=== PATIENT | female | born 1965 | race American Indian/Alaskan Native ===

== ENCOUNTER 2017-08-07 12:38 | Outpatient (CLI) | payer MEDICARE ==
--- NOTE | 2017-08-08 15:28 | Magnetic Resonance Report ---
BILATERAL BREAST MRI WITHOUT AND WITH CONTRAST: 08/07/17 12:38:00 CLINICAL: Newly diagnosed left breast cancer contiguous to fibroadenoma which was biopsied in 2007. Status post left ultrasound-guided needle breast biopsy on 07/07/17 with pathologic diagnosis of invasive carcinoma , grade 2-3. COMPARISON:06/23/17 and 07/07/17 mammograms from [facility]. TECHNIQUE: Axial 1.0-mm T1 without, axial high resolution 2.0-mm T2 and axial 1.0-mm dynamic Vibrant high-resolution postcontrast T1 fat saturation sequences on a 1.5 Suzanne magnet. The examination was performed with an 8 channel dedicated [place] breast coil. Post processing with CAD and subtraction was performed on an Macoscope workstation. 20 cc of Multihance was injected without incident via a right antecubital vein 22-gauge INT for the contrast portion of the exam. Consent was obtained prior to the administration of the contrast. FINDINGS: Right: Minimal background parenchymal enhancement. No mass or suspicious enhancement. No suspicious lymph nodes. Left: Minimal background parenchymal enhancement. An oval circumscribed encapsulated enhancing mass with a biopsy clip at 12 o'clock 9.5 cm from the nipple measures 4.5 x 2.7 x 3.8 cm. It demonstrates heterogeneous enhancement with mixed kinetics, 145% enhancement and 12% type III washout. A second oval smooth contiguous mass is located slightly inferior and posterior to the larger mass and measures 2.7 x 1.9 x 1.8 cm. The lung cancer mixed signal on T2 and the adjacent fibroadenoma is mostly hypointense on T2. There is irregular enhancement at the superior margin of the fibroadenoma with the cancer extending slightly superior to or invading the fibroadenoma. No other mass or suspicious enhancement. A single suspicious left level I axillary lymph node demonstrates cortical thickening of 7 mm. the lymph node measures 2 cm maximum dimension. No other suspicious lymph nodes. IMPRESSION: Known left breast cancer measuring 4.5 cm maximum. The cancer is contiguous to a biopsy proven fibroadenoma and may invade the fibroadenoma. One suspicious left axillary lymph node. Negative right breast. RIGHT BI-RADS 1 -- Negative LEFT BI-RADS 6 -- Known Cancer
== END 2017-08-07 12:39 | disposition home or self-care (01) ==
LOC: SPVIMAG 12:38
PROVIDERS: ATTEND Surgery
DX: C50.912 Malignant neoplasm of unspecified site of left female breast (principal); Z80.3 Family history of malignant neoplasm of breast
CPT/HCPCS: A9577; C8908; 77059

== ENCOUNTER 2017-08-13 15:36 | Outpatient (CLI) | payer MEDICARE | END 2017-08-13 15:37 | disposition home or self-care (01) | LOC: LABHHL 15:36 | PROVIDERS: ATTEND Specialist | DX: R92.8 Other abnormal and inconclusive findings on diagnostic imaging of breast (principal) | CPT/HCPCS: 88305 ==

== ENCOUNTER 2017-08-27 06:03 | Day surgery (SDC) | payer MEDICARE ==
[2017-08-27] MEDS ORDERED: NACL BACTERIOSTATIC INFILTRATI ONE (06:37)
[2017-08-27] MEDS ORDERED: NACL 0.9% 100 ML ONE (06:40)
[2017-08-27] MEDS ORDERED: XYLOCAINE 1% 20 mL ONE (06:40)
[2017-08-27] MEDS ORDERED: HEPARIN 10,000 UNITS/10 ML ONE (06:40)
[2017-08-27] MEDS ORDERED: MARCAINE 0.25% INFILTRATI ONE ×2 (06:40→08:30)
[2017-08-27] MEDS ORDERED: ZOFRAN IV PRN (07:10)
[2017-08-27] MEDS ORDERED: NACL 0.9% 1000 ML 1,000 ML ONE ×2 (07:15→09:13)
--- NOTE | 2017-08-27 07:17 | Anesthesia Consultation ---
Anesthesia Consult and Med Hx Date of service: 08/27/17 - Airway Anesthetic Teeth Evaluation: Good ROM Head & Neck: Adequate Mental/Hyoid Distance: Adequate Mallampati Class: Class III Intubation Access Assessment: Probably Good - Pulmonary Exam CTA: Yes - Cardiac Exam Cardiac Exam: RRR - Pre-Operative Health Status ASA Pre-Surgery Classification: ASA3 Proposed Anesthetic Plan: MAC - Pulmonary Hx Smoking: No Hx Asthma: No COPD: No Hx Sleep Apnea: No - Cardiovascular System Hx Hypertension: Yes (2016) Hx Heart Attack/AMI: No Hx Pacemaker: No Hx Internal Defibrillator: No Hx Valvular Heart Disease: No Hx Heart Murmur: No Hx Peripheral Vascular Disease: No - Central Nervous System Hx Neuromuscular Disorder: No Hx Seizures: No CVA: No Hx Psychiatric Problems: No - Gastrointestinal Hx Gastroesophageal Reflux Disease: No - Endocrine Hx Renal Disease: No - Hematic Hx Anemia: No - Other Systems Hx Alcohol Use: Yes (WEEKENDS) Hx Substance Use: No Hx Cancer: Yes
--- NOTE | 2017-08-27 07:17 | Anesthesia Day of Surgery ---
Anesthesia Day of Surgery - Day of Surgery Patient Examined: Yes Patient H&P Reviewed: Yes Patient is NPO: Yes
--- NOTE | 2017-08-27 07:18 | Progress Note ---
Subjective Date of service: 08/27/17 Principal diagnosis: breast Cancer Interval history: Pt seen and examined. NPO. No heart disease. Plan is MAC. Objective - Constitutional Vitals: Vital Signs - 12hr 08/27/17 08/27/17 07:02 07:06 Temperature 98.2 F 98.2 F Pulse Rate 84 84 Respiratory 18 18 Rate Blood Pressure 175/97 175/97
[2017-08-27] MEDS ORDERED: DIPRIVAN 10 MG/ML IV ONE ×2 (07:32→08:12)
[2017-08-27] MEDS ORDERED: VERSED ONE (07:33)
[2017-08-27] MEDS ORDERED: SUBLIMAZE ONE (07:36)
[2017-08-27] MEDS ORDERED: XYLOCAINE MPF 0.5% INFILTRATI ONE (07:37)
[2017-08-27] MEDS ORDERED: ZOFRAN IV NR (08:00)
[2017-08-27] MEDS ORDERED: DILAUDID IV PRN (08:00)
[2017-08-27] MEDS ORDERED: PEPCID IV NR (08:00)
[2017-08-27] MEDS ORDERED: ANCEF/STERILE WATER 2 GM/20 ML IV NR (08:00)
[2017-08-27] MEDS ORDERED: LACTATED RINGERS 1,000 ML IV SCH (08:00)
[2017-08-27] MEDS ORDERED: HEPARIN 10,000 UNITS/10 ML IV ONE (08:29)
[2017-08-27] MEDS ORDERED: NACL 0.9% IR ONE (08:29)
[2017-08-27] MEDS ORDERED: XYLOCAINE 1% 20 mL INFILTRATI ONE (08:30)
[2017-08-27] MEDS ORDERED: NACL 0.9% IV ONE (08:30)
--- NOTE | 2017-08-27 09:26 | Short Stay Summary ---
Short Stay Documentation Date of service: 08/27/17 Narrative H&P: 51 yo F with left breast cancer. The patient is a candidate for chemotherapy and was referred for port placement. She has no complaints. - History Principal diagnosis: left breast cancer H&P: obtained from office - Allergies and Medications Current Medications: Allergies morphine Adverse Reaction (Intermediate, Verified 08/25/17 10:51) Itching Home Medications Medication Instructions Recorded Confirmed Last Taken Type Insulin Glargine,Hum.rec.anlog 40 units SQ QHS 08/25/17 08/27/17 08/26/17 History [Lantus Solostar] Liraglutide [Victoza 2-Moe] 1.8 mg SQ QDAY 08/25/17 08/27/17 08/26/17 History Metoprolol [Lopressor] 100 mg PO QHS 08/25/17 08/27/17 08/25/17 History hydrALAZINE [Apresoline TAB] 10 mg PO BID 08/25/17 08/27/17 08/26/17 History Active Medications Cefazolin Sodium (Ancef/Sterile Water 2 Gm/20 Ml) 2 gm IV PREOP NR Stop: 08/27/17 12:00 Famotidine (Pepcid) 20 mg IV PREOP NR Stop: 08/27/17 10:00 Hydromorphone HCl (Dilaudid) 0.25 mg IV Q10MIN PRN PRN Reason: Pain, Moderate (4-6) Stop: 08/27/17 15:00 Lactated Ringer's (Lactated Ringers) 1,000 mls @ 100 mls/hr IV DIRECT ISMA Ondansetron HCl (Zofran) 4 mg IV ONCE PRN PRN Reason: Nausea And Vomiting Ondansetron HCl (Zofran) 4 mg IV PREOP NR Stop: 08/27/17 12:00 - Brief post op/procedure progress note Date of procedure: 08/27/17 Pre-op diagnosis: left breast cancer Post-op diagnosis: same Procedure: Placement of right internal jugular port a cath with ultrasound guidance Anesthesia: MAC, local Findings: good placement of port on post op CXR, no PTX Surgeon: WAI BROWER Estimated blood loss: minimal Pathology: none Condition: stable - Hospital course Hospital course: Pt was observed in PACU and discharged in stable condition when criteria was met. - Disposition Condition at discharge: Good Disposition: DC-01 TO HOME OR SELFCARE Short Stay Discharge Plan Activity: no restrictions Diet: diabetic Wound: open to air, other (May shower with soap and water tomorrow. Pat incision dry, do not scrub) Follow up with: NAVID TATE MD [Primary Care Provider] - 7 Days WAI BROWER DO [Staff Physician] - 14 Days
--- NOTE | 2017-08-27 09:48 | Fluoroscopy Report ---
AP CHEST: HISTORY: Breast cancer AP view of the chest demonstrates a normal mediastinal and cardiac contour with clear lungs and normal bony and soft tissue structures. A right Winoqy-y-Rcym has been inserted which terminates in the cavoatrial junction. No pneumothorax identified. IMPRESSION: Unremarkable AP chest. Right Odsigv-l-Bgau placement as described.
[2017-08-27] MEDS ORDERED: APRESOLINE PO PRN (11:00)
[2017-08-27 11:28] VITALS: BP 184/90
--- NOTE | 2017-08-27 13:21 | Post Anesthesia Evaluation ---
- Post Anesthesia Evaluation Patient Participated: Yes Airway Patent: Yes Stable Respiratory Function: Yes Nausea/Vomiting: No Temp > 96.8F: Yes Pain Manageable: Yes Adequeate Hydration: Yes Anesthesia Complications: No
--- NOTE | 2017-08-27 14:56 | Operative Report ---
Operative Report Operative Report: Date of operation: 08/27/17 Reoperative diagnosis: Left breast cancer Postoperative diagnosis: Same as above Procedure performed: Placement of right internal jugular Port-A-Cath with ultrasound-guided Surgeon: Arpit Weber DO Anesthesia: MAC, local Findings: On intraoperative CXR - good placement of port and no PTX EBL: <10cc Complications: none Disposition: stable to PACU HPI and indication: Patient is a 51-year-old female who has left breast cancer. The patient is seen by Dr. Pal who diagnosed her breast cancer and Dr. Nair" (oncology) and deemed a candidate for chemotherapy. All of the risks associated with the procedure were discussed with the patient including but not limited to pneumothorax, infection, bleeding, malpositioned port, injury to other structures. The patient understands and all questions were answered. Consent was signed and placed on chart. Procedure in detail: The patient was identified in the preoperative area, taken back to operating room, placed on operating table in supine position. After anesthesia was induced both arms were tucked and upper chest and neck were prepped and draped in usual sterile fashion. A timeout was performed. The was placed in Trendelenburg position. Local anesthetic was infiltrated into the skin at the intended puncture site. The right subclavian vein was visualized with ultrasound and access was attempted. Due to the small caliber of the vein and collapsing of the vein with respiration, access could not be gained after 2 sticks. I then identified the right internal jugular vein with ultrasound and it was accessed on the first stick. There was return of dark red, nonpulsatile blood. The wire was threaded under fluoroscopy without resistance and positioning confirmed. The needle was then removed. Using a 15 blade, an incision was made in the right upper chest and dissection carried down through the skin and subcutaneous tissue using Bovie electrocautery. Hemostasis was achieved along the way. A pocket for the port was then created bluntly and with electrocautery. The catheter was flushed and tunneled from the pocket to the wire. A breakaway catheter/dilator sheath then inserted over the wire under fluoroscopy, and the wire and dilator removed. The catheter was then inserted through the breakaway catheter which was then removed. The catheter sat flush under the skin. Using continuous fluoroscopy, the catheter was pulled back until the tip was visualized in the right atrium. The catheter was then cut to size and the port attached in the usual fashion. The port was then sutured into place to the pre-pectoral fascia using 2-0 Vicryl interrupted sutures. The wound was irrigated and hemostasis ensured. The port was tested with heparinized saline and there was return of blood and it flushed easily. The port was then instilled with 3000 units of heparin. The deep dermal layer was then closed with interrupted 3-0 Vicryl stitches. The skin incisions were closed with 4-0 Monocryl subcuticular stitches and skin glue. Intraoperative chest x-ray did show good positioning of the port, without evidence of pneumothorax At the end of the case, all sponge, instrument, sharp counts were correct 2. The patient was awoken from anesthesia and taken to PACU in stable condition.
== END 2017-08-27 11:35 | disposition home or self-care (01) ==
LOC: OR 06:03
PROVIDERS: ATTEND Surgery
DX: C50.412 Malignant neoplasm of upper-outer quadrant of left female breast (principal); E11.9 Type 2 diabetes mellitus without complications; I10 Essential (primary) hypertension; E78.00 Pure hypercholesterolemia, unspecified; E66.9 Obesity, unspecified; Z88.5 Allergy status to narcotic agent; Z68.41 Body mass index [BMI] 40.0-44.9, adult
CPT/HCPCS: 36561; 77001; 82962; C1788; J0690; J1644; J2250; J2405; J2704; J3010; J7030

== ENCOUNTER 2017-08-28 07:40 | Outpatient (CLI) | payer MEDICARE ==
--- NOTE | 2017-08-28 14:27 | PET Report ---
PET/CT:08/28/17 07:40:00 CLINICAL: Breast cancer staging. Recently diagnosed left breast cancer. MRI demonstrated a 4.5 cm cancer contiguous to a biopsy proven benign fibroadenoma and possible invasion of the fibroadenoma of the cancer. RADIOPHARMACEUTICAL: 15.116mCi F18-FDG. COMPARISON: 08/07/17 MRI Breast TECHNIQUE- Following intravenous injection of F-18 FDG and an approximately 60 minute uptake period, CT and PET images from the mid skull to the upper thighs were acquired with the patient in the fasted state. No contrast was administered. The CT protocol used for this PET CT study is designed for attenuation correction and anatomic localization of PET abnormalities. This scarfing machine operator CT is not desired to produce and cannot replace, czlnj-hl-wyx-art diagnostic CT scans with specific imaging protocols for different body parts and indications. Plasma glucose the this test: 80g/dl. The standardized uptake values (SUV) are normalized to patient body weight and indicate the highest activity concentration (SUV max) in a given disease site. FINDINGS: Brain--Physiologic FDG uptake in the visualized regions of the brain. Neck--Physiologic FDG uptake . Chest--An irregular left breast mass with a biopsy clip measures 5.1 x 3.3 x 4.6 cm. Slightly less than half of the mass is FDG avid with SUV 12.5. Physiologic FDG uptake in mediastinal blood pool and myocardium. Lungs--No abnormal uptake. No pulmonary nodule or mass. However, a small area of nonspecific patchy right upper lobe lung opacities images 67-73. Pleura/pericardium--No abnormal uptake. No pleural effusion. Thoracic nodes--No abnormal uptake. Hepatobiliary--No abnormal uptake. Liver background SUV mean, as a reference for comparing FDG studies, is 2.6 . No liver mass. Spleen--No abnormal uptake. Pancreas--No abnormal uptake. Adrenal Glands--No abnormal uptake. Kidneys/Ureters/Bladder--No abnormal uptake. Abdominopelvic Nodes--No abnormal uptake. Bowel/Peritoneum/Mesentery--No abnormal uptake. Pelvic organs--No abnormal uptake. Bones/Soft Tissues--No abnormal uptake. No suspicious bone lesion. IMPRESSION- 1. FDG avid left breast cancer with the FDG avid portion of the mass measuring 3.8 x 3.3 x 2.4 cm. 2. Nonspecific patchy right upper lobe lung opacities. The differential includes acute or chronic pneumonia and is less likely pulmonary metastasis. 3. No evidence of ana, hepatic or skeletal metastasis.
== END 2017-08-28 07:41 | disposition home or self-care (01) ==
LOC: PET 07:40
PROVIDERS: ATTEND Internal Medicine Hematology
DX: C50.512 Malignant neoplasm of lower-outer quadrant of left female breast (principal); Z79.899 Other long term (current) drug therapy
CPT/HCPCS: 78815; 82962; A9552

== ENCOUNTER 2018-02-18 06:31 | Day surgery (SDC) | payer MEDICARE, OTHER ==
[2018-02-18] MEDS ORDERED: XYLOCAINE 1% 20 mL INFILTRATI NR (07:39)
[2018-02-18] MEDS ORDERED: ANCEF/STERILE WATER 2 GM/20 ML IV NR (08:00)
[2018-02-18] MEDS ORDERED: DILAUDID IV PRN (08:10)
--- NOTE | 2018-02-18 08:10 | Anesthesia Consultation ---
Anesthesia Consult and Med Hx Date of service: 02/18/18 - Airway Anesthetic Teeth Evaluation: Good ROM Head & Neck: Adequate Mental/Hyoid Distance: Adequate Mallampati Class: Class II Intubation Access Assessment: Probably Good - Pulmonary Exam CTA: Yes - Cardiac Exam Cardiac Exam: RRR - Pre-Operative Health Status ASA Pre-Surgery Classification: ASA3 Proposed Anesthetic Plan: General - Pulmonary Hx Smoking: No Hx Asthma: No COPD: No Hx Sleep Apnea: No - Cardiovascular System Hx Hypertension: Yes Hx Heart Attack/AMI: No - Central Nervous System Hx Neuromuscular Disorder: No Hx Seizures: No CVA: No - Gastrointestinal Hx Gastroesophageal Reflux Disease: No - Endocrine Hx Renal Disease: No Hx Liver Disease: No Hx Insulin Dependent Diabetes: Yes (Took 40 units insulin / PM) Hx Thyroid Disease: No - Other Systems Hx Alcohol Use: Yes (WEEKENDS) Hx Substance Use: No Hx Cancer: Yes (recent diagnosis stage II breast Ca) - Additional Comments Anesthesia Medical History Comments: Declined nerve block
--- NOTE | 2018-02-18 08:10 | Anesthesia Day of Surgery ---
Anesthesia Day of Surgery - Day of Surgery Patient Examined: Yes Patient H&P Reviewed: Yes Patient is NPO: Yes
--- NOTE | 2018-02-18 08:59 | Mammography Report ---
NEEDLE LOCALIZATION AND HOOKWIRE PLACEMENT BREAST:02/18/18 CLINICAL: Known left breast cancer status post chemotherapy and an adjacent fibroadenoma. COMPARISON: 01/22/18 FINDINGS: Using mammographic guidance, 1% lidocaine local anesthesia and sterile technique, two 7.5 cm Gallegos needles with a hookwires or placed from a lateral approach to localize the known cancer with a biopsy clip and an adjacent partially circumscribed mass known to be a benign fibroadenoma. Hookwires were deployed and the needles were removed. Satisfactory placement was confirmed on two orthogonal views. The patient tolerated the procedure well and there were no apparent complications. IMPRESSION: Uncomplicated hookwire placement at 2 sites left breast.
[2018-02-18] MEDS ORDERED: VERSED IV NR (09:00)
[2018-02-18] MEDS ORDERED: NEURONTIN PO NR (09:00)
[2018-02-18] MEDS ORDERED: LACTATED RINGERS 1,000 ML IV SCH (09:00)
[2018-02-18] MEDS ORDERED: DIPRIVAN 10 MG/ML IV ONE ×2 (09:25→10:07)
[2018-02-18] MEDS ORDERED: SUBLIMAZE ONE (09:25)
[2018-02-18] MEDS ORDERED: MARCAINE 0.25% INFILTRATI ONE ×2 (09:28→10:44)
[2018-02-18] MEDS ORDERED: METHYLENE BLUE ONE (09:58)
[2018-02-18] MEDS ORDERED: NACL P/F VIAL (10 ML) 10 ML ONE (10:03)
[2018-02-18] MEDS ORDERED: XYLOCAINE 1% 20 mL INFILTRATI ONE (10:44)
[2018-02-18] MEDS ORDERED: METHYLENE BLUE IV ONE (10:47)
[2018-02-18] MEDS ORDERED: NACL P/F VIAL (10 ML) IV ONE (10:53)
[2018-02-18] MEDS ORDERED: WATER FOR IRRIG STERILE IR ONE (10:54)
[2018-02-18] MEDS ORDERED: DILAUDID ONE (11:53)
[2018-02-18] MEDS ORDERED: XYLOCAINE MPF 2% ONE (12:15)
[2018-02-18] MEDS ORDERED: ZOFRAN ONE ×2 (12:15→16:32)
[2018-02-18] MEDS ORDERED: NACL 0.9% 1000 ML 1,000 ML ONE (12:19)
--- NOTE | 2018-02-18 12:35 | Short Stay Summary ---
Short Stay Documentation Date of service: 02/18/18 - History H&P: obtained from office - Allergies and Medications Current Medications: Allergies morphine Adverse Reaction (Intermediate, Verified 02/16/18 10:33) Itching Home Medications Medication Instructions Recorded Confirmed Last Taken Type Insulin Glargine,Hum.rec.anlog 40 units SQ QHS 08/25/17 02/18/18 02/17/18 23:30 History [Lantus Solostar] 40 UNITS Liraglutide [Victoza 2-Moe] 1.8 mg SQ QDAY 08/25/17 02/18/18 02/17/18 07:45 History Metoprolol [Lopressor] 100 mg PO QHS 08/25/17 02/18/18 02/17/18 23:30 History hydrALAZINE [Apresoline TAB] 10 mg PO BID 08/25/17 02/18/18 02/18/18 06:00 History HYDROcodone/APAP 5-325 [[place] 1 each PO Q6HR PRN #30 tablet 02/18/18 Unknown Rx 5/325] Active Medications Cefazolin Sodium (Ancef/Sterile Water 2 Gm/20 Ml) 2 gm IV PREOP NR Stop: 02/18/18 20:00 Celecoxib (Celebrex) 200 mg PO PREOP NR Stop: 02/18/18 20:00 Last Admin: 02/18/18 09:05 Dose: 200 mg Gabapentin (Neurontin) 300 mg PO PREOP NR Stop: 02/18/18 20:00 Last Admin: 02/18/18 09:05 Dose: 300 mg Hydromorphone HCl (Dilaudid) 0.5 mg IV Q10MIN PRN PRN Reason: Pain , Severe (7-10) Stop: 02/18/18 20:00 Lactated Ringer's (Lactated Ringers) 1,000 mls @ 100 mls/hr IV DIRECT ISMA Last Admin: 02/18/18 09:17 Dose: 100 mls/hr Lidocaine (Xylocaine 1% 20 Ml) 20 ml INFILTRATI ONCE NR Stop: 02/18/18 20:00 Midazolam HCl (Versed) 2 mg IV PREOP NR Stop: 02/18/18 23:59 - Brief post op/procedure progress note Date of procedure: 02/18/18 Pre-op diagnosis: Left breast cancer of the upper outer quadrant Post-op diagnosis: same Procedure: Left needle localization partial mastectomy with SLNB Anesthesia: GETA Findings: Wires and clip present within radiograph specimen Surgeon: BLOSSOM CERVANTES Estimated blood loss: minimal Pathology: list Specimen disposition: to lab Condition: stable - Disposition Condition at discharge: Good Disposition: DC-01 TO HOME OR SELFCARE Short Stay Discharge Plan Activity: other (no heavy lifting) Diet: regular Wound: other (keep incision clean and dry; may shower in 24 hours; no baths, pools or lakes; wear breast binder; do not rub or scrub incision) Follow up with: NAVID TATE MD [Primary Care Provider] - 7 Days BLOSSOM CERVANTES MD [Staff Physician] - 7 Days Prescriptions: HYDROcodone/APAP 5-325 [[place] 5/325] 1 each PO Q6HR PRN #30 tablet PRN Reason: Pain
--- NOTE | 2018-02-18 12:38 | Operative Report ---
Operative Report Operative Report: February 18, 2018 Preoperative diagnosis: Left breast cancer of the upper outer quadrant Postoperative diagnosis: Same Procedure: Left needle localization partial mastectomy of the upper outer quadrant and SLNB Surgeon: Renee Pal MD Anesthesia: General Findings: Left wires and clip present within radiograph specimen; x 1 SLN Complications: None EBL: Minimal Disposition: PACU in good condition Indications for operative procedure: This is a 52 year old lady with left breast cancer of the upper outer quadrant, Stage I [id number] triple negative. She completed neoadjvuant chemotherapy and wished to proceed with breast conservation. Recommendations were to proceed with excisional biopsy of fibroadenoma as well. Known cancer at the 1:00 position. She wished to proceed with the above procedure. Procedure in detail: The patient was taken to radiology for wire placement for localization known area of cancer. Patient was then taken to the operating room. Gen. anesthesia was administered. The left nipple was injected with radioisotope and 1 cc of metheleyne blue with 1 cc of saline. The left breast and axilla were prepped and draped in the normal sterile operative fashion. The wire was identified. Timeout was performed. Gamma probe was inserted into the axilla. The area of hot spot was identified. A left axillary incision was made with a 15 blade knife with dissection taken down to the subcutaneous tissues. The axillary fascia was opened with the Bovie cautery. 1 SLN was identified with blue dye present. No addiational count were present. Lymph node was sent to pathology for permanent processing. Hemostasis was obtained in the left axillary cavity. Axillary cavity was appropriately irrigated and suctioned. The axillary cavity was anesthetized with 1% lidocaine mixed with quarter percent Marcaine. Hemostasis was noted. Axillary fascia was approximated and closed using interrupted 3-0 Vicryl and the skin brought together and closed using a running 4-0 Monocryl followed by skin affix. Attention was then taken towards the left breast. Lateral breast incision was made with a 15 blade knife and dissection taken down to subcutaneous tissues. First began raising of the lateral flap with removal of the wire from the skin with dissection take down to the pectoralis muscle, followed by raising of the medial flap, superior flap and inferior flap with all flaps taken down to the pectoralis muscle. The breast area of concern was appropriately removed posteriorly from the pectoralis muscle with the aid of the Bovie cautery. The wire was not encountered. Specimen was marked and then sent to pathology and radiology; radiograph specimen with wires and clip present. Additional anterior margin was taken as well given fibrotic tissue noted and after additional margin was taken no further concerning tissue was noted. Breast cavity was irrigated and hemostasis was obtained. The breast cavity was anesthetized with 1 % lidocaine mixed with quarter percent Marcaine. The posterior deep breast tissues were approximated and closed using interrupted 3-0 Vicryl. The subcutaneous tissues were approximated and closed using interrupted 3-0 Vicryl followed by closing of the skin with a running 4-0 Monocryl and skin affix. The patient tolerated surgery very well and she was awaken from anesthesia without any complication and transported to PACU in good condition.
[2018-02-18] MEDS ORDERED: NEO SYNEPHRINE/NS Syringe(OR USE) IV ONE (12:50)
--- NOTE | 2018-02-18 12:50 | Mammography Report ---
SPECIMEN RADIOGRAPH LEFT BREAST: 02/18/18 06:31:00 CLINICAL: Surgical excision of a known cancer and an adjacent fibroadenoma. FINDINGS: The targeted lesions with a single biopsy clip and 2 hookwires are identified within the specimen. IMPRESSION: Excision of the targeted lesions.
[2018-02-18] MEDS ORDERED: APRESOLINE ONE (13:20)
[2018-02-18] MEDS ORDERED: APRESOLINE IV ONE ×2 (13:45)
--- NOTE | 2018-02-18 14:25 | Post Anesthesia Evaluation ---
- Post Anesthesia Evaluation Patient Participated: Yes Airway Patent: Yes Stable Respiratory Function: Yes Nausea/Vomiting: No Temp > 96.8F: Yes Pain Manageable: Yes Adequeate Hydration: Yes Anesthesia Complications: No Other Comments: Hypertensive on arrival to PACU. Improved with analgesics and IV hydralazine.
[2018-02-18] MEDS ORDERED: BENADRYL IV SCH (14:41)
[2018-02-18 20:15] VITALS: BP 163/90
== END 2018-02-18 17:25 | disposition home or self-care (01) ==
LOC: OR 06:31
PROVIDERS: ATTEND Surgery
DX: C50.412 Malignant neoplasm of upper-outer quadrant of left female breast (principal); I10 Essential (primary) hypertension; E11.40 Type 2 diabetes mellitus with diabetic neuropathy, unspecified; G62.9 Polyneuropathy, unspecified; Z88.5 Allergy status to narcotic agent; Z79.4 Long term (current) use of insulin; Z79.899 Other long term (current) drug therapy; Z98.890 Other specified postprocedural states; Z72.89 Other problems related to lifestyle; Z98.891 History of uterine scar from previous surgery
CPT/HCPCS: 19281; 19282; 19301; 38525; 76098; 78800; 82962; 88307; 88341; 88342; A9541; J0360; J0690; J1170; J1200; J2250; J2370; J2405; J2704; J3010; J7030; J7120; Q9968; 88333

== ENCOUNTER 2019-04-05 07:07 | Day surgery (SDC) | payer MEDICARE, OTHER ==
[~2019-04-05 07:07] MED LIST: BUPIVACAINE/PF (0.25%) 2.5 MG/ML 30 ML VIAL INFILTRATI ONE
[2019-04-05 07:50] VITALS: BP 174/87
[2019-04-05] MEDS ORDERED: BUPIVACAINE/PF (0.25%) 2.5 MG/ML 30 ML VIAL INFILTRATI ONE (08:04)
[2019-04-05] MEDS ORDERED: LIDOCAINE (1%) 10 MG/1 ML VIAL 20 ML MDV INFILTRATI ONE (08:04)
--- NOTE | 2019-04-05 08:35 | Operative Report ---
Operative Report Operative Report: Date of Service: April 05, 2019 Properative diagnosis: Right port with central venous access not indicated Postoperative diagnosis: Same Procedure: Left port removal Surgeon: Renee Pal MD Vinyl Dipper: Rosemary Nice MD Anesthesia: Local Findings: Removal of right port in its entirety Complications: None Drain: None Estimated blood loss: Minimal Disposition: Home in good condition Indications for operative procedure: This is a 53-year-old lady with a personal history of Stage II right breast cancer. Patient has completed neoadjuvant chemotherapy and central venous access no longer indicated. Patient wished to proceed with port removal. Procedure in detail: Patient was taken to the minor procedure room. She was laid supine. The port was identified of the right chest.The right chest was prepped and draped in the normal sterile operative fashion. The skin was anesthetized with 1% lidocaine mixed with quarter percent Marcaine. The prior port incision was opened with a 15 blade knife and taken down to the subcutaneous tissues. The port was encountered. The catheter was encountered and was appropriately dissected free and removed in its entirety. Then proceed with port removal with dissection of scar tissue around the port. The port was removed in its entirety without any complications. Hemostasis was obtained. The subcutanoeus tisses were brought together and closed with interrupted 3-0 Vicryl followed by closing of the skin with a running 4-0 Monocryl followed by dermabond. She tolerated the procedure very well and was discharged home in good condition.
== END 2019-04-05 08:38 | disposition home or self-care (01) ==
LOC: OR 07:07
PROVIDERS: ATTEND Surgery
DX: Z45.2 Encounter for adjustment and management of vascular access device (principal); E11.42 Type 2 diabetes mellitus with diabetic polyneuropathy; G62.9 Polyneuropathy, unspecified; I10 Essential (primary) hypertension; Z85.3 Personal history of malignant neoplasm of breast; Z88.5 Allergy status to narcotic agent; Z79.899 Other long term (current) drug therapy; Z79.4 Long term (current) use of insulin; Z98.891 History of uterine scar from previous surgery; Z72.89 Other problems related to lifestyle; Z98.890 Other specified postprocedural states; Z86.2 Personal history of diseases of the blood and blood-forming organs and certain disorders involving the immune mechanism
CPT/HCPCS: 82962; 88300; 88302